=== PATIENT | male | born 1950 | race Caucasian/White ===

== ENCOUNTER 2020-01-22 14:28 | Emergency (ER) | payer MEDICARE, BC ==
--- NOTE | 2020-01-22 15:29 | EDM.PDOC ---
ED HPI GENERAL MEDICAL PROBLEM - General Chief Complaint: Syncope Stated Complaint: DIZZY, LEG CRAMPS, TINGLY LIPS Time Seen by Provider: 01/22/20 15:00 Source of Information: Reports: Patient History Limitations: Reports: No Limitations - History of Present Illness INITIAL COMMENTS - FREE TEXT/NARRATIVE: 69-year-old male with 3 episodes in the past 3 days of lightheaded sensation when standing, the last 2 only lasted 5 to 10 minutes but today was lasting almost an hour so he wanted to come in to be checked. On the way in he was starting to get tingling around his lips but that resolved prior to getting to the emergency room. No shortness of breath, chest pain, palpitations, diarrhea , or fever. He did have some nausea today during the episode but that is resolved as well. He is under a lot of stress right now because he is undergoing cataract surgery in the near future and only has "one good eye". Duration: Day(s): (3 days of symptoms waxing and waning), Waxing/Waning Associated Symptoms: Reports: Diaphoresis, Nausea/Vomiting (Nausea but no vomiting) - Related Data Allergies Allergy/AdvReac Type Severity Reaction Status Date / Time No Known Allergies Allergy Verified 01/22/20 14:50 Home Meds: Home Meds Insulin Aspart [NovoLOG] 16 units SQ TID 01/22/20 [History] Insulin Detemir [Levemir Flextouch] 30 units SQ DAILY 01/22/20 [History] Insulin Detemir [Levemir Flextouch] 50 units SQ BEDTIME 01/22/20 [History] Metoprolol Tartrate [Lopressor] 50 mg PO BID 01/22/20 [History] Simvastatin 20 mg PO BEDTIME 01/22/20 [History] lisinopriL [Lisinopril] 40 mg PO DAILY 01/22/20 [History] metFORMIN [Glucophage] 1,000 mg PO BIDMEALS 01/22/20 [History] Past Medical History Cardiovascular History: Reports: Bypass, High Cholesterol, Hypertension Endocrine/Metabolic History: Reports: Diabetes, Type II, Obesity/BMI 30+ - Past Surgical History Musculoskeletal Surgical History: Reports: Other (See Below) Other Musculoskeletal Surgeries/Procedures:: back surgery. hand surgery Social & Family History - Tobacco Use Smoking Status *Q: Never Smoker ED ROS GENERAL - Review of Systems Review Of Systems: See Below Constitutional: Reports: Malaise. Denies: Fever, Chills HEENT: Reports: Other (Chronic vision loss in one eye, current cataract problems ) Respiratory: Denies: Shortness of Breath, Cough Cardiovascular: Denies: Chest Pain, Palpitations GI/Abdominal: Reports: Nausea. Denies: Abdominal Pain, Diarrhea, Vomiting Skin: Reports: Diaphoresis Neurological: Reports: Dizziness. Denies: Headache - Physical Exam Exam: See Below Exam Limited By: No Limitations General Appearance: Alert, No Apparent Distress Eye Exam: Bilateral Eye: EOMI Head Exam: Atraumatic Neck: Normal Inspection. No: Carotid Bruit Respiratory/Chest: No Respiratory Distress, Lungs Clear Cardiovascular: Regular Rate, Rhythm, Systolic Murmur GI/Abdominal: Soft, Non-Tender Neuro Exam (Abbreviated): Alert, Oriented, No Motor/Sensory Deficits Extremities: Other (Trace symmetric ankle edema) Psychiatric: Anxious Skin Exam: Warm, Dry Course - Vital Signs Last Recorded V/S: Last Vital Signs Temp 98.4 F 01/22/20 14:48 Pulse 95 01/22/20 14:48 Resp 20 01/22/20 14:48 BP 184/81 H 01/22/20 14:48 Pulse Ox 96 01/22/20 14:48 Orthostatic Blood Pressure [ 167/81 Supine] Orthostatic Blood Pressure [ 157/88 Standing] Orthostatic Blood Pressure [ 188/86 Sitting] - Orders/Labs/Meds Labs: Laboratory Tests 01/22/20 01/22/20 01/22/20 Range/Units 15:24 15:32 15:32 WBC 6.3 (4.5-11.0) K/uL RBC 5.53 (4.30-5.90) M/uL Hgb 15.8 H (12.0-15.0) g/dL Hct 48.1 (40.0-54.0) % MCV 87 (80-98) fL MCH 29 (27-31) pg MCHC 33 (32-36) % Plt Count 157 (150-400) K/uL Neut % (Auto) 65 (36-66) % Lymph % (Auto) 26 (24-44) % [place] % (Auto) 7 H (2-6) % Eos % (Auto) 1 L (2-4) % Baso % (Auto) 0 (0-1) % Sodium 139 L (140-148) mmol/L Potassium 4.1 (3.6-5.2) mmol/L Chloride 104 (100-108) mmol/L Carbon Dioxide 24 (21-32) mmol/L Anion Gap 15.1 H (5.0-14.0) mmol/L BUN 17 (7-18) mg/dL Creatinine 1.0 (0.8-1.3) mg/dL Est Cr Clr Drug Dosing 77.60 mL/min Estimated GFR (MDRD) > 60 (>60) Glucose 154 H (74-106) mg/dL Calcium 9.2 (8.5-10.1) mg/dL Total Bilirubin 0.4 (0.2-1.0) mg/dL AST 47 H (15-37) U/L ALT 74 (12-78) U/L Alkaline Phosphatase 57 (46-116) U/L Troponin I < 0.017 (0.000-0.056) ng/mL Total Protein 7.3 (6.4-8.2) g/dL Albumin 3.7 (3.4-5.0) g/dL Globulin 3.6 H (2.3-3.5) g/dL Albumin/Globulin Ratio 1.0 L (1.2-2.2) Urine Color Yellow (YELLOW) Urine Appearance Clear (CLEAR) Urine pH 6.0 (5.0-8.0) Ur Specific [place] 1.015 (1.008-1.030) Urine Protein Negative (NEGATIVE) mg/dL Urine Glucose (UA) 500 H (NEGATIVE) mg/dL Urine Ketones Negative (NEGATIVE) mg/dL Urine Occult Blood Negative (NEGATIVE) Urine Nitrite Negative (NEGATIVE) Urine Bilirubin Negative (NEGATIVE) Urine Urobilinogen 0.2 (0.2-1.0) EU/dL Ur Leukocyte Esterase Negative (NEGATIVE) Urine RBC Not seen (0-5) Urine WBC Not seen (0-5) Ur Epithelial Cells Not seen Amorphous Sediment Rare Urine Bacteria Not seen Urine Mucus Not seen - Re-Assessments/Exams Free Text/Narrative Re-Assessment/Exam: 01/22/20 15:30 Orthostatics were obtained and were normal. CBC CMP and troponin were obtained for reassurance. 01/22/20 16:15 Labs were reassuring, troponin was 0, glucose 154. UA showed a small amount of glucose in his urine but no other abnormalities. Patient was asymptomatic while in the emergency room. Normal sinus rythm throughout his time in ER. Departure - Departure Time of Disposition: 16:25 Disposition: Home, Self-Care 01 Clinical Impression: Near syncope - Discharge Information Instructions: Near-Syncope, [id number] Referrals: PCP,None [Primary Care Provider] - Forms: ED Department Discharge Care Plan Goals: Continue your current medications, stay hydrated, and follow your diabetic diet. Keep your appointment on as scheduled. Keep fishing. Sepsis Event Note - Evaluation Sepsis Screening Result: No Definite Risk - Focused Exam Vital Signs: Vital Signs Temp Pulse Resp BP Pulse Ox 01/22/20 14:48 98.4 F 95 20 184/81 H 96 Date Exam was Performed: 01/22/20 Time Exam was Performed: 17:50
== END 2020-01-22 16:25 | disposition home or self-care (01) ==
LOC: JP.ED 14:28
DX: R55 Syncope and collapse (principal); R11.2 Nausea with vomiting, unspecified; E78.00 Pure hypercholesterolemia, unspecified; I10 Essential (primary) hypertension; E11.9 Type 2 diabetes mellitus without complications; E66.9 Obesity, unspecified; Z79.4 Long term (current) use of insulin; Z68.27 Body mass index [BMI] 27.0-27.9, adult
CPT/HCPCS: 36415; 80053; 81001; 84484; 85025; 99284

== ENCOUNTER 2020-03-12 12:32 | Emergency (ER) | payer MEDICARE, BC ==
[2020-03-12] MEDS ORDERED: Sodium Chloride 0.9% 10 ML Syringe FLUSH PRN (13:19)
--- NOTE | 2020-03-12 13:51 | CR ---
CHEST: 2 view CLINICAL HISTORY:Bradycardia COMPARISON:None FINDINGS: Heart is mildly enlarged. Patient has had previous sternotomy. The heart size, pulmonary vascularity and hilar structures are normal. No infiltrate effusion or pneumothorax is seen. There are atherosclerotic changes in the aorta. IMPRESSION: No acute cardiopulmonary process. Mild cardiomegaly
--- NOTE | 2020-03-12 13:56 | EDM.PDOC ---
ED HPI GENERAL MEDICAL PROBLEM - General Chief Complaint: Cardiovascular Problem Stated Complaint: HEART MONITOR TROUBLE Time Seen by Provider: 03/12/20 13:20 Source of Information: Reports: Patient, Provider History Limitations: Reports: No Limitations - History of Present Illness INITIAL COMMENTS - FREE TEXT/NARRATIVE: Michele presents to [place] ER with for concerns regarding repetitive syncopal episodes that have been occurring for a number of weeks. Patient was evaluation in the ER 3 weeks ago for what sounded like a hypotensive syncope: patient got up from a chair passed out and collapsed striking his knee but came to immediately after falling to the floor without injury. Patient was evaluated on a Thursday but followed up in clinic the following when a Holter monitor was placed. Patient had 7-10 similar episodes during the 2 weeks on the Holter. Syncopal episodes occur randomly without regard for activity or positioning (lying down sleeping, standing, walking or seated). Patient denies shortness of breath, chest pain, headache or any symptoms proceeding syncope. Patient fortunately has not had any injuries during or due to syncopal episodes. Patient took off his Holter Monitor on around 9 am and sent in on Thursday. [facility] Patient was contacted and told to present to the local ER for evaluation and recommended admission and EP consultation. Patient fortunately has not had any syncopal or near syncopal episodes since removing Holter Monitor on . Patient denie s any current symptoms: no headache, cough, shortness of breath ro any systemic symptoms or concerns. - Related Data Allergies Allergy/AdvReac Type Severity Reaction Status Date / Time shellfish derived Allergy Intermediate Vomiting Verified 03/12/20 12:46 sitagliptin [From Januvia] Allergy Intermediate Diarrhea Verified 03/12/20 12:46 Home Meds: Home Meds Insulin Aspart [NovoLOG] 16 units SQ TID 01/22/20 [History] Insulin Detemir [Levemir Flextouch] 30 units SQ DAILY 01/22/20 [History] Insulin Detemir [Levemir Flextouch] 50 units SQ BEDTIME 01/22/20 [History] Metoprolol Tartrate [Lopressor] 25 mg PO BID 01/22/20 [History] Simvastatin 20 mg PO BEDTIME 01/22/20 [History] lisinopriL [Lisinopril] 40 mg PO DAILY 01/22/20 [History] metFORMIN [Glucophage] 1,000 mg PO BIDMEALS 01/22/20 [History] Aspirin 81 mg PO DAILY 03/12/20 [History] Calcium Carbonate/Vitamin D3 [Calcium 600-Vit D3 2,500 Sftgl] 1 tab PO DAILY 0 03/12/20 [History] Dapagliflozin Propanediol [Farxiga] 10 mg PO DAILY 03/12/20 [History] Fish Oil/[place]-3 Fatty Acids [Fish Oil 1,000 MG] 1,000 mg PO DAILY 03/12/20 [History] Multivit-Min/FA/Lycopen/Lutein [Centrum Silver Men Tablet] 1 each PO BEDTIME 03/12/20 [History] Past Medical History HEENT History: Reports: Cataract, Hard of Hearing Cardiovascular History: Reports: Bypass, High Cholesterol, Hypertension Other Cardiovascular History: 5 bypasses in 2003 Endocrine/Metabolic History: Reports: Diabetes, Type II, Obesity/BMI 30+ - Past Surgical History Musculoskeletal Surgical History: Reports: Other (See Below) Other Musculoskeletal Surgeries/Procedures:: back surgery. hand surgery Social & Family History - Tobacco Use Smoking Status *Q: Never Smoker Second Hand Smoke Exposure: No - Caffeine Use Caffeine Use: Reports: Coffee, Soda - Recreational Drug Use Recreational Drug Use: No ED ROS GENERAL - Review of Systems Review Of Systems: Comprehensive ROS is negative, except as noted in HPI. ED EXAM, GENERAL - Physical Exam Exam: See Below Exam Limited By: No Limitations General Appearance: Alert, WD/WN, No Apparent Distress Eye Exam: Bilateral Eye: EOMI, Normal Inspection Ears: Normal External Exam, Hearing Grossly Normal Nose: Normal Inspection, Normal Mucosa Throat/Mouth: Normal Inspection, Normal Lips, Normal Oropharynx, Normal Voice, No Airway Compromise Head: Normocephalic Neck: Normal Inspection, Supple, Full Range of Motion Respiratory/Chest: No Respiratory Distress, Lungs Clear, Normal Breath Sounds, Chest Non-Tender Cardiovascular: Normal Peripheral Pulses, Regular Rate, Rhythm, No Murmur, Other (ulnar pulse right is bounding and regular) Peripheral Pulses: 0: Radial (L) (surgically absent), Radial (R) (surgically absent) GI/Abdominal: Normal Bowel Sounds, Soft, Non-Tender, Other (unable to assess due to abdominal girth). No: No Organomegaly Rectal (Males) Exam: Deferred Back Exam: Normal Inspection, Full Range of Motion Extremities: Normal Inspection, Non-Tender, Other (scar bilateral volar forearms (radial artery removal) ) Neurological: Alert, Oriented, CN II-XII Intact, Normal Cognition, Normal Gait, No Motor/Sensory Deficits Psychiatric: Normal Affect, Normal Mood Skin Exam: Warm, Dry EKG INTERPRETATION EKG Date: 03/12/20 Time: 13:44 Rhythm: Other (P waves present but wide complex) [place]: LAD-Left [place] Deviation (LVH) P-Wave: Present QRS: Wide (junctional rhythm) ST-T: Other (non-specific) QT: Prolonged Comparison: NA - No Prior EKG Course - Vital Signs Last Recorded V/S: Last Vital Signs Temp 36.1 C 03/12/20 13:04 Pulse 76 03/12/20 14:08 Resp 12 03/12/20 14:08 BP 145/67 H 03/12/20 14:08 Pulse Ox 95 03/12/20 14:08 - Orders/Labs/Meds Orders: Active Orders 24 hr Category Date Time Status Cardiac Monitoring [RC] .As Directed Care 03/12/20 13:20 Active EKG Documentation Completion [RC] ASDIRECTED Care 03/12/20 13:20 Active Peripheral IV Care [RC] . DIRECTED Care 03/12/20 13:20 Active Sodium Chloride 0.9% [Saline Flush] Med 03/12/20 13:19 Active 10 ml FLUSH ASDIRECTED PRN Peripheral IV Insertion Adult [OM.PC] Urgent Oth 03/12/20 13:20 Ordered EKG 12 Lead [EK] Urgent Ther 03/12/20 13:19 Ordered Medication Orders Sodium Chloride (Saline Flush) 10 ml FLUSH ASDIRECTED PRN PRN Reason: Keep Vein Open Last Admin: 03/12/20 14:20 Dose: 10 ml Documented by: LV Labs: Laboratory Tests 03/12/20 03/12/20 03/12/20 Range/Units 13:24 13:24 13:24 WBC 7.0 (4.5-11.0) K/uL RBC 5.53 (4.30-5.90) M/uL Hgb 15.9 H (12.0-15.0) g/dL Hct 47.6 (40.0-54.0) % MCV 86 (80-98) fL MCH 29 (27-31) pg MCHC 33 (32-36) % Plt Count 164 (150-400) K/uL Neut % (Auto) 56 (36-66) % Lymph % (Auto) 34 (24-44) % [place] % (Auto) 9 H (2-6) % Eos % (Auto) 1 L (2-4) % Baso % (Auto) 0 (0-1) % PT 10.7 (9.5-12.0) sec INR 0.99 (0.80-1.20) Sodium 141 (140-148) mmol/L Potassium 4.2 (3.6-5.2) mmol/L Chloride 104 (100-108) mmol/L Carbon Dioxide 26 (21-32) mmol/L Anion Gap 10.7 (5.0-14.0) mmol/L BUN 17 (7-18) mg/dL Creatinine 0.8 (0.8-1.3) mg/dL Est Cr Clr Drug Dosing 95.65 mL/min Estimated GFR (MDRD) > 60 (>60) Glucose 143 H (74-106) mg/dL Calcium 9.4 (8.5-10.1) mg/dL Troponin I < 0.017 (0.000-0.056) ng/mL Meds: Medications Generic Name Dose Route Start Last Admin Trade Name Freq PRN Reason Stop Dose Admin Sodium Chloride 10 ml 03/12/20 13:19 03/12/20 14:20 Saline Flush FLUSH 10 ml ASDIRECTED PRN Administration Keep Vein Open - Re-Assessments/Exams Free Text/Narrative Re-Assessment/Exam: Called [facility] regarding transfer for further cardiac evaluation, possible admission with EP cardiology consultation and intervention. I was connected with ER MD Dr Frank, whom requested patient be a directed admission to hospitalist, telemetry floor. On hold to speak to Hospitalist regarding directed admission. 03/12/20 14:00 Discussed transfer, EKG findings, residential monitor readings and laboratory studies with patient and . was asked to get a meal for her and patient at this time. Transfer paperwork will be completed and talk to receiving facility about bed placement and nurse report. Patient and had not additional questions or concerns. 03/12/30 14:45 Departure - Departure Disposition: DC/[facility]fer to [facility] 02 Clinical Impression: Syncope and collapse, Asystole by electrocardiogram, Bradycardia Referrals: Tee Tran MD [Primary Care Provider] - Forms: ED Department Discharge Additional Instructions: 1. Go Directly to [facility] for Direct admission to Cardiac Intensive Care Unit. 2. Consultations will likely be done today with any procedure tomorrow or later in the week. 3. Follow-up with PCP after discharge to ensure continuity of care after ER visit and hospitalization. 4. Return to ER if concerns or changes. Sepsis Event Note (ED) - Evaluation Sepsis Screening Result: No Definite Risk - Focused Exam Vital Signs: Vital Signs Temp Pulse Resp BP Pulse Ox 03/12/20 14:08 76 12 145/67 H 95 03/12/20 13:11 68 11 L 136/75 95 03/12/20 13:04 36.1 C 72 16 147/80 H 96 03/12/20 12:42 36.1 C 72 16 147/80 H 96 - My Orders Last 24 Hours: My Active Orders 03/12/20 13:19 Sodium Chloride 0.9% [Saline Flush] 10 ml FLUSH ASDIRECTED PRN EKG 12 Lead [EK] Urgent 03/12/20 13:20 Cardiac Monitoring [RC] .As Directed EKG Documentation Completion [RC] ASDIRECTED Peripheral IV Care [RC] . DIRECTED Peripheral IV Insertion Adult [OM.PC] Urgent - Assessment/Plan Last 24 Hours: My Active Orders 03/12/20 13:19 Sodium Chloride 0.9% [Saline Flush] 10 ml FLUSH ASDIRECTED PRN EKG 12 Lead [EK] Urgent 03/12/20 13:20 Cardiac Monitoring [RC] .As Directed EKG Documentation Completion [RC] ASDIRECTED Peripheral IV Care [RC] . DIRECTED Peripheral IV Insertion Adult [OM.PC] Urgent
== END 2020-03-12 16:01 ==
LOC: JP.ED 12:32
DX: I46.9 Cardiac arrest, cause unspecified (principal); E78.00 Pure hypercholesterolemia, unspecified; I10 Essential (primary) hypertension; E66.9 Obesity, unspecified; Z68.39 Body mass index [BMI] 39.0-39.9, adult; Z91.013 Allergy to seafood; Z88.8 Allergy status to other drugs, medicaments and biological substances; E11.9 Type 2 diabetes mellitus without complications; Z79.4 Long term (current) use of insulin; Z79.82 Long term (current) use of aspirin
CPT/HCPCS: 36415; 71046; 71046-26; 80048; 83735; 84484; 85025; 85610; 93005; 93010; 99285-25

== ENCOUNTER 2021-06-24 09:35 | Emergency (ER) | payer MEDICARE, BC ==
[2021-06-24] MEDS ORDERED: Silver Nitrate Applicator Each TOP ONE (10:06)
--- NOTE | 2021-06-24 10:12 | EDM.PDOC ---
ED HPI GENERAL MEDICAL PROBLEM - General Chief Complaint: ENT Problem Stated Complaint: NOSE BLEEDS Time Seen by Provider: 06/24/21 10:00 Source of Information: Reports: Patient, Family History Limitations: Reports: No Limitations - History of Present Illness INITIAL COMMENTS - FREE TEXT/NARRATIVE: 71-year-old male who has had 2 or 3 episodes of epistaxis from his right nares o omega the past couple of days, he tends to get them stopped but he wants his nose checked out. Currently not bleeding. He is not on anticoagulants. When he gets a nosebleed he puts a Kleenex in his nose, ice on his nose and holds his head backwards. Onset: Sudden (Nosebleed started fairly suddenly 2 days ago) Location: Reports: Other (Right nares) - Related Data Allergies Allergy/AdvReac Type Severity Reaction Status Date / Time shellfish derived Allergy Intermediate Vomiting Verified 06/24/21 09:52 sitagliptin [From Januvia] Allergy Intermediate Diarrhea Verified 06/24/21 09:52 Home Meds: Home Meds Insulin Aspart [NovoLOG] 16 units SQ TID 01/22/20 [History] Insulin Detemir [Levemir Flextouch] 30 units SQ DAILY 01/22/20 [History] Insulin Detemir [Levemir Flextouch] 50 units SQ BEDTIME 01/22/20 [History] Metoprolol Tartrate [Lopressor] 25 mg PO BID 01/22/20 [History] Simvastatin 20 mg PO BEDTIME 01/22/20 [History] lisinopriL [Lisinopril] 40 mg PO DAILY 01/22/20 [History] metFORMIN [Glucophage] 1,000 mg PO BIDMEALS 01/22/20 [History] Aspirin 81 mg PO DAILY 03/12/20 [History] Calcium Carbonate/Vitamin D3 [Calcium 600-Vit D3 2,500 Sftgl] 1 tab PO DAILY 03/12/20 [History] Dapagliflozin Propanediol [Farxiga] 10 mg PO DAILY 03/12/20 [History] Fish Oil/[place]-3 Fatty Acids [Fish Oil 1,000 MG] 1,000 mg PO DAILY 03/12/20 [History] Multivit-Min/FA/Lycopen/Lutein [Centrum Silver Men Tablet] 1 each PO BEDTIME 03/12/20 [History] Past Medical History HEENT History: Reports: Cataract, Hard of Hearing Cardiovascular History: Reports: Bypass, High Cholesterol, Hypertension Other Cardiovascular History: 5 bypasses in 2003 Endocrine/Metabolic History: Reports: Diabetes, Type II, Obesity/BMI 30+ - Past Surgical History Musculoskeletal Surgical History: Reports: Other (See Below) Other Musculoskeletal Surgeries/Procedures:: back surgery. hand surgery Social & Family History - Tobacco Use Tobacco Use Status *Q: Never Tobacco User - Caffeine Use Caffeine Use: Reports: Coffee, Soda ED ROS ENT - Review of Systems Review Of Systems: See Below Constitutional: Denies: Fever, Chills HEENT: Reports: Nosebleed (Right side) Respiratory: Reports: No Symptoms Cardiovascular: Reports: No Symptoms GI/Abdominal: Reports: No Symptoms Neurological: Denies: Headache Psychiatric: Reports: No Symptoms ED EXAM, ENT - Physical Exam Exam: See Below Exam Limited By: No Limitations General Appearance: Alert, No Apparent Distress Eye Exam: Bilateral Eye: Normal Inspection Nose: Other (Small area of irritation on the right septum that appears to be the source of bleeding) Head: Atraumatic Respiratory/Chest: No Respiratory Distress, Lungs Clear Cardiovascular: Regular Rate, Rhythm. No: Tachycardia Neurological: Alert, Oriented Psychiatric: Normal Affect, Normal Mood Skin: Warm, Dry Course - Vital Signs Last Recorded V/S: Last Vital Signs Temp 97.5 F 06/24/21 09:46 Pulse 83 06/24/21 09:46 Resp 20 06/24/21 09:46 BP 185/113 H 06/24/21 10:04 Pulse Ox 96 06/24/21 09:46 - Orders/Labs/Meds Meds: Medications Discontinued Medications Generic Name Dose Route Start Last Admin Trade Name Jessica PRN Reason Stop Dose Admin Silver Nitrate 1 each 06/24/21 10:06 06/24/21 10:11 Silver Nitrate Applicator Each TOP 06/24/21 10:07 1 each ONETIME ONE Administration - Re-Assessments/Exams Free Text/Narrative Re-Assessment/Exam: 06/24/21 10:11 The small spot was tolerated with silver nitrate, the patient was given an external nasal pincher to use if bleeding recurs. He is to hold his head forward and can return if bleeding is persistent. Departure - Departure Time of Disposition: 10:27 Disposition: Home, Self-Care 01 Clinical Impression: Right-sided nosebleed - Discharge Information Instructions: Nosebleed, Adult, [id number] Referrals: Tee Tran MD [Primary Care Provider] - Forms: ED Department Discharge Care Plan Goals: Try to keep the humidity elevated in your living environment, if bleeding recurs use external pressure as described and lean your head forward. You can recheck at the emergency room at any time if bleeding is persistent and you need further help. Sepsis Event Note (ED) - Evaluation Sepsis Screening Result: No Definite Risk - Focused Exam Vital Signs: Vital Signs Temp Pulse Resp BP Pulse Ox 06/24/21 10:04 185/113 H 06/24/21 09:46 97.5 F 83 20 96
== END 2021-06-24 10:32 | disposition home or self-care (01) ==
LOC: JP.ED 09:35
DX: R04.0 Epistaxis (principal); E78.00 Pure hypercholesterolemia, unspecified; I10 Essential (primary) hypertension; E11.9 Type 2 diabetes mellitus without complications; E66.9 Obesity, unspecified; Z88.8 Allergy status to other drugs, medicaments and biological substances; Z91.013 Allergy to seafood; Z79.82 Long term (current) use of aspirin; Z79.4 Long term (current) use of insulin; Z79.899 Other long term (current) drug therapy; Z95.1 Presence of aortocoronary bypass graft; Z68.41 Body mass index [BMI] 40.0-44.9, adult
CPT/HCPCS: 30901; 96365; 99284-25

== ENCOUNTER 2022-09-16 07:45 | Day surgery (SDC) | payer MEDICARE, BC ==
[~2022-09-16 07:45] MED LIST: Propofol 200 MG/20 ML SDV ONE; fentaNYL 50 MCG/ML SDV ONE
[2022-09-16] MEDS ORDERED: Propofol 200 MG/20 ML SDV ONE (09:03)
[2022-09-16] MEDS ORDERED: Dextrose 5%-Lactated Ringers 1,000 ML IV SCH (09:15)
== END 2022-09-16 10:15 | disposition home or self-care (01) ==
LOC: JP.SDS 07:45
PROVIDERS: ATTEND Family Medicine
DX: Z12.11 Encounter for screening for malignant neoplasm of colon (principal); D12.3 Benign neoplasm of transverse colon; K62.1 Rectal polyp; I10 Essential (primary) hypertension; E11.9 Type 2 diabetes mellitus without complications; I25.10 Atherosclerotic heart disease of native coronary artery without angina pectoris; E78.00 Pure hypercholesterolemia, unspecified; Z95.1 Presence of aortocoronary bypass graft; Z79.899 Other long term (current) drug therapy; Z86.010 Personal history of colon polyps; Z91.013 Allergy to seafood; Z88.8 Allergy status to other drugs, medicaments and biological substances
CPT/HCPCS: 45380; 88305; J2704; J3010; J7121